=== PATIENT | male | born 1965 | race Caucasian/White ===

== ENCOUNTER 2021-08-24 20:06 | Observation (INO) ==
[2021-08-24 21:46] LABS: ABS Eosinophils 0.1 10^3/ul (0-0.6); ABS Lymphocytes 1.9 10^3/ul (1.0-4.8); ABS Monocytes 0.7 10^3/ul (0-0.8); ABS Neutrophils 10.3 10^3/ul (1.5-7.7); Eosinophil % 0.9 %; Hematocrit 42 % (42-52); Hemoglobin 14.7 g/dL (14.0-18.0); Lymphocyte % 14.7 %; Mean Corpuscular HGB Conc 35 g/dL (31-36); Mean Corpuscular Hemoglobin 33 pg (27-31); Mean Corpuscular Volume 94 fL (80-94); Mean Platelet Volume 7.5 fL (7.4-10.4); Platelet Count 224 10^3/uL (150-450); Red Blood Count 4.45 10^6 /uL (4.18-5.48); Red Cell Distribution Width 13 % (10-15); White Blood Count 13.2 10^3/uL (3.5-10.8)
[2021-08-24] MEDS ORDERED: Al Hydrox/Mg Hydrox/Simet LIQ 30 ML UDC PO ONE (22:10)
[2021-08-24 22:15] LABS: Albumin 4.5 g/dL (3.2-5.2); Albumin/Globulin Ratio 1.7 (1-3); Calcium 9.6 mg/dL (8.6-10.3); Globulin 2.6 g/dL (2-4); Potassium 4.2 mmol/L (3.5-5.0); Total Bilirubin 0.4 mg/dL (0.2-1.0); Total Protein 7.1 g/dL (6.4-8.9); eGFR CKD-EPI 91.1 (>60)
[2021-08-24] MEDS ORDERED: Iohexol 300 (CONTRAST) 10 ML SDV IV ONE (22:41)
[2021-08-24] MEDS ORDERED: Morphine 4 MG/ML VIAL (1 ml) IV ONE (23:43)
[2021-08-24] MEDS ORDERED: D5W 1/2 NS KCl 20 meq 1000 ml 1,000 ML IV SCH (23:45)
[2021-08-24] MEDS ORDERED: Ondansetron 4 mg VIAL 2 MG/ML 2 ml VIAL IV ONE (23:46)
[2021-08-24] MEDS ORDERED: Ondansetron 4 mg VIAL 2 MG/ML 2 ml VIAL IV PRN (23:51)
[2021-08-24] MEDS ORDERED: ZOSYN 3.375 GM x ONE DOSE over 30 miuntes IV (23:58)
[2021-08-25] MEDS: HYDROmorphone 0.5 MG/0.5 ML SYRINGE IV SLOW PU PRN ×2 (03:11→08:07)
[2021-08-25] MEDS ORDERED: Piperacillin/Tazobactam VIAL 3.375 GM in NS 0.9% 100 ml BAG 100 ML IVPB SCH (04:00)
[2021-08-25] MEDS ORDERED: Lidocaine 2% PF 5 ML VIAL ONE (08:23)
[2021-08-25] MEDS ORDERED: Desflurane 240 ML INH ONE (08:23)
[2021-08-25] MEDS ORDERED: Dexamethasone IV 4 MG/ML VIAL 1 ml VIAL ONE (08:24)
[2021-08-25] MEDS ORDERED: Rocuronium 50 mg VIAL 10 mg/ml 5 ml VIAL (50 mg) ONE ×2 (08:25→09:38)
[2021-08-25] MEDS ORDERED: HYDROmorphone 0.5 MG/0.5 ML SYRINGE ONE ×2 (08:26→09:53)
[2021-08-25] MEDS ORDERED: Propofol 10 MG/ML 20 ML BTL ONE (08:28)
[2021-08-25] MEDS ORDERED: Bupivacaine 0.5% 50 ML MDV VIAL ONE (08:48)
[2021-08-25] MEDS ORDERED: Naloxone 0.4 mg VIAL 0.4 mg/ml 1 ml VIAL IV PRN (10:06)
[2021-08-25] MEDS ORDERED: Ondansetron 4 mg VIAL 2 MG/ML 2 ml VIAL IV PRN (10:06)
[2021-08-25] MEDS ORDERED: HYDROmorphone 1 MG/1 ML SYRINGE ONE (10:08)
[2021-08-25] MEDS: HYDROmorphone 1 MG/1 ML SYRINGE IV PRN ×2 (10:08→10:25)
[2021-08-25] MEDS ORDERED: Ondansetron 4 mg VIAL 2 MG/ML 2 ml VIAL ONE (10:21)
[2021-08-25 11:51] VITALS: BP 103/67
== END 2021-08-25 12:25 | disposition home or self-care (01) ==
LOC: EDHOLD 20:06 → ED 20:06 → SSU 08-25 02:06
PROVIDERS: ADMIT Surgery; ATTEND Surgery